=== PATIENT | female | born 1995 | race Caucasian/White ===

== ENCOUNTER 2018-08-28 11:08 | Emergency (ER) | payer OTHER ==
--- NOTE | 2018-08-28 12:20 | EDM.PDOC ---
<Amol Crawford - Last Filed: 08/28/18 12:14> ED HPI GENERAL MEDICAL PROBLEM - General Chief Complaint: Neck Problem Stated Complaint: NECK PAIN Time Seen by Provider: 08/28/18 11:28 Source of Information: Reports: Patient History Limitations: Reports: No Limitations - History of Present Illness INITIAL COMMENTS - FREE TEXT/NARRATIVE: Katiuska Rajput is a 22 year old female who presents to the ED with neck pain since 08/21. She was at a drive through and when she turned to looked at the employee she felt a sudden sharp pain. She states that pain hasn't worsened or improved. She feels the pain with any head motions but states that her range of motion is only limited due to pain and there is no joint stiffness. She applies heat and states that helps and it makes the neck a little numb. Her pain is a sharp 8 out of 10 that starts at about C7 and radiates to the back of the skull and towards the right shoulder. She has tried taking Ibuprofen, Aleve, and Aspirin for her pain but nothing seems to be working. She has recently taken Ibuprofen at 10 this morning. She has never had this type of pain. She denies any surgeries to her spine. Right Neck Pain Score (Numeric/FACES): 5 - Related Data Allergies Allergy/AdvReac Type Severity Reaction Status Date / Time Penicillins Allergy Rash Verified 08/28/18 11:16 Home Meds: Home Meds Orphenadrine [Norflex] 100 mg PO BID PRN #20 tab 08/28/18 [Rx] predniSONE [Deltasone] 20 mg PO ASDIRECTED #15 tablet 08/28/18 [Rx] Past Medical History - Past Health History Medical/Surgical History: Denies Medical/Surgical History Cardiovascular History: Reports: Hypertension Social & Family History - Family History Family Medical History: Noncontributory - Tobacco Use Smoking Status *Q: Never Smoker - Caffeine Use Caffeine Use: Reports: Coffee - Recreational Drug Use Recreational Drug Use: No ED ROS GENERAL - Review of Systems Constitutional: Reports: No Symptoms Respiratory: Reports: No Symptoms Cardiovascular: Reports: No Symptoms GI/Abdominal: Reports: No Symptoms Musculoskeletal: Reports: Neck Pain, Muscle Pain. Denies: Shoulder Pain, Joint Pain, Joint Swelling Neurological: Reports: No Symptoms ED EXAM, UPPER BACK/NECK PAIN - Physical Exam Exam Limited By: No Limitations General Appearance: Alert, WD/WN, No Apparent Distress Eye Exam: Bilateral Eye: Normal Inspection, PERRL Head Exam: Atraumatic, Normocephalic Neck Exam: Full Range of Motion, Normal Alignment, Limited Range of Motion (Due to pain), Painful Range of Motion, Paraspinous Muscle Tender, Stiff Neck, Tenderness (To C7, mid skull, and shelter to right shoulder). No: Muscle Spasm , Spinous Processes Tender Cardiovascular/Respiratory: Regular Rate, Rhythm, No M/R/G, Normal Peripheral Pulses, No JVD, Normal Breath Sounds, No Respiratory Distress Back Exam: Normal Inspection, Full Range of Motion, NT Extremities: Normal Inspection, Normal Range of Motion, Non-Tender, No Pedal Edema, Normal Capillary Refill Neurologic: frame nailer II-XII nml As Tested, No Motor/Sensory Deficits, Alert, Normal Mood/Affect, Oriented x 3 Psychiatric: Normal Affect, Normal Mood Course - Vital Signs Last Recorded V/S: Last Vital Signs Temp 97.7 F 08/28/18 11:13 Pulse 84 08/28/18 11:13 Resp 18 08/28/18 11:13 BP 151/108 H 08/28/18 11:13 Pulse Ox 100 08/28/18 11:13 Departure - Departure Disposition: Home, Self-Care 01 Clinical Impression: Acute strain of neck muscle Qualifiers: Encounter type: initial encounter Qualified Code(s): S16.1XXA - Strain of muscle, fascia and tendon at neck level, initial encounter - Discharge Information Prescriptions: Orphenadrine [Norflex] 100 mg PO BID PRN #20 tab PRN Reason: Spasms predniSONE [Deltasone] 20 mg PO ASDIRECTED #15 tablet Instructions: Muscle Strain, [id number] Referrals: PCP,None [Primary Care Provider] - Forms: ED Department Discharge Additional Instructions: You have been evaluated in the ED for your neck pain. Please use ice/heat as tolerated to the affected area. You may take tylenol 500 mg or ibuprofen 600mg q6 hrs for pain relief. Please do so until you have a tolerable level of pain with activity. Do not exceed 4000mg tylenol, Do not exceed 3200mg ibuprofen in a 24 hour time period. You have been provided with a prescription for Norflex, please take one tab twice daily for muscle spasms, You have also been provided with a script for prednisone, an anti-inflammatory, please take as directed. You may also obtain Salonpas topical pain relief patches, these are over-the- counter and can be obtained at any retail pharmacy or [facility]. Please return to ED if your symptoms should change or worsen. <Dorinda Douglas Marie - Last Filed: 08/28/18 21:23> ED HPI GENERAL MEDICAL PROBLEM - History of Present Illness INITIAL COMMENTS - FREE TEXT/NARRATIVE: I have read and reviewed the student's HPI and examined the patient and agree with Ata Carmichael student. ED ROS GENERAL - Review of Systems Review Of Systems: See Below ED EXAM, UPPER BACK/NECK PAIN - Physical Exam Exam: See Below Course - Re-Assessments/Exams Free Text/Narrative Re-Assessment/Exam: 08/28/18 12:25 Patient presents to the ED for the evaluation of neck pain. This is most likely musculoskeletal strain in nature. I will provide the patient with prescription for Norflex, and a steroid burst to see if this doesn't help further pain relief. The patient is amenable to this plan. Departure - Departure Time of Disposition: 12:27 Condition: Fair - Discharge Information *PRESCRIPTION DRUG MONITORING PROGRAM REVIEWED*: No *COPY OF PRESCRIPTION DRUG MONITORING REPORT IN PATIENT DOUGLAS: No
== END 2018-08-28 12:44 | disposition home or self-care (01) ==
LOC: JD.ED 11:08
DX: S16.1XXA Strain of muscle, fascia and tendon at neck level, initial encounter (principal); I10 Essential (primary) hypertension; Z88.0 Allergy status to penicillin; X50.0XXA Overexertion from strenuous movement or load, initial encounter
CPT/HCPCS: 99283

== ENCOUNTER 2018-08-30 22:19 | Emergency (ER) | payer SELFPAY ==
--- NOTE | 2018-08-30 22:58 | EDM.PDOC ---
ED HPI GENERAL MEDICAL PROBLEM - General Chief Complaint: Back Pain or Injury Stated Complaint: NECK PAIN FROM FRONT OF NECK TO LOWER BACK Time Seen by Provider: 08/30/18 22:33 Source of Information: Reports: Patient, RN Notes Reviewed History Limitations: Reports: No Limitations - History of Present Illness INITIAL COMMENTS - FREE TEXT/NARRATIVE: Patient is a 22 year old female who presents to the ED for the evaluation of upper back and anterior neck pain. She states that this is located mainly in her middle upper back, and over her sternum and anterior neck. She notes the pain to be more of a tenderness to the touch. She states that started roughly 2 hours ago. She notes that is hurts to lay on her back. She states that she just took her prednisone and norflex, and states that has helped her neck strain immensely. She further denies any trauma to the area, and denies pain with breathing. She states that the pain is mostly present when the areas are touched. She rates this at an 8/10. Back Pain Score (Numeric/FACES): 8 - Related Data Allergies Allergy/AdvReac Type Severity Reaction Status Date / Time Penicillins Allergy Rash Verified 08/28/18 11:16 Home Meds: Home Meds Orphenadrine [Norflex] 100 mg PO BID PRN #20 tab 08/28/18 [Rx] predniSONE [Deltasone] 20 mg PO ASDIRECTED #15 tablet 08/28/18 [Rx] Past Medical History - Past Health History Medical/Surgical History: Denies Medical/Surgical History Cardiovascular History: Reports: Hypertension Social & Family History - Family History Family Medical History: Noncontributory - Tobacco Use Smoking Status *Q: Never Smoker - Caffeine Use Caffeine Use: Reports: Coffee, Energy Drinks, Soda - Recreational Drug Use Recreational Drug Use: No ED ROS GENERAL - Review of Systems Review Of Systems: See Below Constitutional: Reports: No Symptoms HEENT: Reports: No Symptoms Respiratory: Denies: Shortness of Breath Cardiovascular: Denies: Chest Pain Musculoskeletal: Reports: Neck Pain, Back Pain Skin: Reports: No Symptoms Neurological: Denies: Headache, Numbness, Tingling Psychiatric: Reports: No Symptoms Hematologic/Lymphatic: Reports: No Symptoms Immunologic: Reports: No Symptoms ED EXAM, UPPER BACK/NECK PAIN - Physical Exam Exam: See Below Exam Limited By: No Limitations General Appearance: Alert, WD/WN, No Apparent Distress Eye Exam: Bilateral Eye: Normal Inspection Neck Exam: Full Range of Motion, Normal Alignment, Normal Inspection, Other ( anterior neck slightly tender to even light touch. She is able to move her neck in normal ROM without pain.) Nexus Criteria: No: Posterior, Midline Cervical Tenderness, Evidence of Intoxication, Altered Level of Consciousness, Focal Neurological Deficit, Painful Distraction Injuries Cardiovascular/Respiratory: Regular Rate, Rhythm, Normal Peripheral Pulses, Normal Breath Sounds, No Respiratory Distress Extremities: Normal Inspection, Normal Range of Motion, Normal Capillary Refill Neurologic: No Motor/Sensory Deficits, Alert, Normal Mood/Affect, Oriented x 3 Psychiatric: Normal Affect, Normal Mood Skin Exam: Normal Color, Warm/Dry Course - Vital Signs Last Recorded V/S: Last Vital Signs Temp 97.9 F 08/30/18 22:32 Pulse 98 08/30/18 22:32 Resp 20 08/30/18 22:32 BP 123/103 H 08/30/18 22:32 Pulse Ox 100 08/30/18 22:32 - Re-Assessments/Exams Free Text/Narrative Re-Assessment/Exam: 08/30/18 22:59 Pt presents to the ED for the evaluation of sudden onset middle upper back and neck tenderness. This may be a sequelae from her neck strain, as there are no other obvious signs of trauma or impairment. I will offer the patient toradol for pain relief, and the option to be sent home with 0.5 mg ativan to get some sleep and see if the pain is still present in the AM. 08/30/18 23:09 Pt is amenable to the conservative management plan. She did refuse the toradol and ativan at this time, and will go home and take her ibuprofen. Recommendations to heat/ice as tolerated and lidocaine patches for further relief were given. She was educated on the signs on when to return. Departure - Departure Time of Disposition: 23:12 Disposition: Home, Self-Care 01 Condition: Fair Clinical Impression: Neck pain, Acute upper back pain - Discharge Information *PRESCRIPTION DRUG MONITORING PROGRAM REVIEWED*: No *COPY OF PRESCRIPTION DRUG MONITORING REPORT IN PATIENT DOUGLAS: No Instructions: Back Pain, Adult, [id number] Referrals: PCP,None [Primary Care Provider] - Forms: ED Department Discharge Additional Instructions: You have been evaluated in the ED for your back pain and neck pain. This pain is likely due to muscular pain and healing from your recent muscle strain. Please take your prednisone and norflex as prescribed. You may take 400-600 mg ibuprofen for further pain relief. You may also use ice/heat packs as tolerated and lidocaine patches on the affected area on your back. Your muscles were tensed up for over a week, it is likely that you will be sore or feel pain from this for a few days. If you pain is not much better or worsens over the next few days, please to do not hesitate to return to ED for the re-evaluation.
== END 2018-08-30 23:25 | disposition home or self-care (01) ==
LOC: JD.ED 22:19
DX: M54.6 Pain in thoracic spine (principal); M54.2 Cervicalgia; I10 Essential (primary) hypertension; Z88.0 Allergy status to penicillin
CPT/HCPCS: 99282; 99283

== ENCOUNTER 2021-03-26 16:42 | Emergency (ER) | payer MEDICAID ==
--- NOTE | 2021-03-26 17:15 | EDM.PDOC ---
ED HPI GENERAL MEDICAL PROBLEM - General Chief Complaint: Abdominal Pain Stated Complaint: abdominal pain 3 wks post op Time Seen by Provider: 03/26/21 17:07 Source of Information: Reports: Patient History Limitations: Reports: No Limitations - History of Present Illness INITIAL COMMENTS - FREE TEXT/NARRATIVE: 25-year-old female presents to the ED with complaints of right lower quadrant abdominal pain at the lateral aspect of her Pfannenstiel scar that was done 3 weeks ago. It was not bothering her initially but has over the last 3 days with increased sharp stabbing lancinating burning shooting pain suggestive of neurogenic pain. Patient was in [place] due to spontaneous ruptured membranes and required emergency with the delivery of a 29-week old female which is in the NICU at this time. Mother is pumping but not breast-feeding. Bowel function has been normal. She is appreciated night sweats which she believes is due to hormone changes. She has very little lochia. No genitourinary complaints. She has no pain on the left side of her surgical incision but has developed increasing pain in the right side of her lateral incision over the last 3 days. It is painful to get in and out of a vehicle she cannot tolerate the lap belt on the area and has to hold it away from her skin. It hurts to get in and out of bed hurts to get up and off a sofa or chair. She has not appreciated any definitive fever. She has had no drainage from her surgical wound. She is not sure if there was a hematoma in this area prior and is more noticeable at this point time since she continues to lose weight. Onset: Gradual Onset Date: 03/23/21 Duration: Day(s):, Getting Worse (Increasing pain right lower quadrant lateral aspect of Pfannenstiel incision over the last 3 days) Location: Reports: Abdomen (Right lower quadrant of the abdomen) Quality: Reports: Ache, Throbbing, Other (Sharp and stabbing with certain movements) Severity: Moderate Improves with: Reports: Rest Worsens with: Reports: Movement (Deep breathing coughing movement such as walking getting out of a vehicle etc.) Context: Reports: Other (Pain at the right lateral aspect of her Pfannenstiel C- sections incision which was performed 3 weeks ago). Denies: Activity, Exercise, Lifting, Sick Contact Associated Symptoms: Reports: Other (Night sweats diaphoresis she feels due to hormone changes) Treatments MANAGER CUSTOMER: Reports: Acetaminophen Right Lower Abdomen Pain Score (Numeric/FACES): 8 - Related Data Allergies Allergy/AdvReac Type Severity Reaction Status Date / Time Penicillins Allergy Rash Verified 03/26/21 17:04 Home Meds: Home Meds . 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 Denies: Fever, Chills, Malaise, Weakness, Decreased Valarie etite, Weight Loss HEENT: Reports: No Symptoms Respiratory: Reports: No Symptoms Cardiovascular: Reports: No Symptoms Endocrine: Reports: Fatigue GI/Abdominal: Reports: Abdominal Pain (See history of present illness), Flatus. Denies: Constipation, Distension, Nausea, Vomiting : Reports: Other (Hardly any lochia.). Denies: Dysuria, Frequency, Urgency Musculoskeletal: Reports: No Symptoms Skin: Reports: No Symptoms Neurological: Reports: No Symptoms Psychiatric: Reports: No Symptoms Hematologic/Lymphatic: Reports: No Symptoms Immunologic: Reports: No Symptoms ED EXAM, GI/ABD - Physical Exam Exam: See Below Exam Limited By: No Limitations General Appearance: Alert, WD/WN, No Apparent Distress, Other (Temperature is 37.2 degrees although she does not feel warm to palpation. Heart rate is 86 and sinus respiratory to 16 with O2 sats of 96% on room air BP 149/108.) Eyes: Bilateral: Normal Appearance (Mild blepharal pallor. No scleral icterus) Throat/Mouth: Normal Inspection, Normal Lips, Normal Oropharynx Respiratory/Chest: No Respiratory Distress, Lungs Clear, Normal Breath Sounds, No Accessory Muscle Use Cardiovascular: Normal Peripheral Pulses, Regular Rate, Rhythm, No Edema, No Gallop, No Murmur, No Rub GI/Abdominal Exam: Normal Bowel Sounds, Soft, No Organomegaly, No Mass, Pelvis Stable, Other (She is tender with a palpable mass just underneath the lateral aspect of her Pfannenstiel surgical wound right lower quadrant. This area is tender to touch as well. It feels like a resolving hematoma there is no fluctuation the surgical wound appears to be healing adequately with no signs of drain) Back Exam: Normal Inspection, Full Range of Motion. No: CVA Tenderness (L), CVA Tenderness (R) Extremities: Normal Inspection, Normal Range of Motion, Non-Tender, No Pedal Edema Neurological: Alert, Oriented, CN II-XII Intact, Normal Cognition. No: Normal Gait Psychiatric: Normal Affect, Normal Mood Skin Exam: Warm, Dry, Intact, Normal Color, No Rash Course - Vital Signs Last Recorded V/S: Last Vital Signs Temp 37.2 C 03/26/21 16:56 Pulse 86 03/26/21 16:56 Resp 16 03/26/21 16:56 BP 149/108 H 03/26/21 16:56 Pulse Ox 96 03/26/21 16:56 - Orders/Labs/Meds Orders: Active Orders 24 hr Category Date Time Status Abdomen Pelvis wo Cont [CT] Stat Exams 03/26/21 17:16 Taken Labs: Laboratory Tests 03/26/21 03/26/21 03/26/21 Range/Units 17:26 17:26 17:44 WBC 6.98 (3.98-10.04) K/mm3 RBC 4.69 (3.98-5.22) M/mm3 Hgb 14.4 (11.2-15.7) gm/dl Hct 42.1 (34.1-44.9) % MCV 89.8 (79.4-94.8) fl MCH 30.7 (25.6-32.2) pg MCHC 34.2 (32.2-35.5) g/dl RDW Std Deviation 37.7 (36.4-46.3) fL Plt Count 281 (182-369) K/mm3 MPV 9.3 L (9.4-12.3) fl Neut % (Auto) 49.2 (34.0-71.1) % Lymph % (Auto) 41.3 (19.3-51.7) % Stevens % (Auto) 6.4 (4.7-12.5) % Eos % (Auto) 2.4 (0.7-5.8) Baso % (Auto) 0.3 (0.1-1.2) % Neut # (Auto) 3.43 (1.56-6.13) K/mm3 Lymph # (Auto) 2.88 (1.18-3.74) K/mm3 Stevens # (Auto) 0.45 H (0.24-0.36) K/mm3 Eos # (Auto) 0.17 (0.04-0.36) K/mm3 Baso # (Auto) 0.02 (0.01-0.08) K/mm3 Sodium 138 (136-145) mEq/L Potassium 3.8 (3.5-5.1) mEq/L Chloride 103 (98-107) mEq/L Carbon Dioxide 27 (21-32) mEq/L Anion Gap 11.8 (5-15) BUN 12 (7-18) mg/dL Creatinine 1.0 (0.55-1.02) mg/dL Est Cr Clr Drug Dosing 76.71 mL/min Estimated GFR (MDRD) > 60 (>60) mL/min BUN/Creatinine Ratio 12.0 L (14-18) Glucose 91 (70-99) mg/dL Calcium 9.1 (8.5-10.1) mg/dL Total Bilirubin 0.4 (0.2-1.0) mg/dL AST 12 L (15-37) U/L ALT 25 (14-59) U/L Alkaline Phosphatase 104 (46-116) U/L C-Reactive Protein <0.2 (<1.0) mg/dL Total Protein 7.6 (6.4-8.2) g/dl Albumin 3.8 (3.4-5.0) g/dl Globulin 3.8 gm/dL Albumin/Globulin Ratio 1.0 (1-2) Urine Color Yellow (Yellow) Urine Appearance Clear (Clear) Urine pH 6.0 (5.0-8.0) Ur Specific [place] 1.025 (1.005-1.030) Urine Protein Negative (Negative) Urine Glucose (UA) Negative (Negative) Urine Ketones Negative (Negative) Urine Occult Blood Negative (Negative) Urine Nitrite Negative (Negative) Urine Bilirubin Negative (Negative) Urine Urobilinogen 0.2 (0.2-1.0) Ur Leukocyte Esterase Trace H (Negative) Urine RBC 0-5 (0-5) /hpf Urine WBC 0-5 (0-5) /hpf Ur Squamous Epith Cells 0-5 (0-5) /hpf Urine Bacteria Few (FEW) /hpf Urine Mucus Few (FEW) /hpf - Radiology Interpretation Free Text/Narrative:: 25-year-old female presents to the ED for evaluation of increasing pain right lateral aspect of her Pfannenstiel wound that was performed 3 weeks ago. She will delivered a 29-week female fetus whom remains in the NICU in [place] by emergency due to prolonged rupture of membranes. Patient has a bicornuate uterus and always delivers early. She is 3 para 3. She does not believe she has been running a fever but she is having increasing p ain to touch to stand to walk for cough and lap belt of the seatbelt hurts going across this area. It hurts to get in and out of bed it hurts to get up and down from a sofa or chair. On exam she has a tender firm indurated area lateral aspect of the Pfannenstiel wound which appears to be a hematoma. There is no fluctuation to suggest a seroma. Plan : CBC, CMP, CRP and urinalysis. CT of the abdomen and pelvis per renal protocol without any contrast. - Re-Assessments/Exams Free Text/Narrative Re-Assessment/Exam: 03/26/21 17:50 Urinalysis is yellow clear with a trace of leukocyte Estrace but the micro shows no white cells or red cells 03/26/21 17:57 White count is normal at 6.98. The auto differential reveals 49.2% neutrophils. Hemoglobin is 14.4 with hematocrit of 42.1 platelet count 281,000 .Chemistry is pending 03/26/21 18:08 CT scan of the abdomen pelvis has been performed without any contrast. It reveals a small hiatal hernia. Basal lungs are clear. Liver appears homogeneous without any intraductal dilatation. Gallbladder contains no calcified stones. Pancreas appears normal. Spleen appears normal stomach is for the most part empty. Both kidneys appear normal without any stones and ureters are normal. There is a fair amount of stool throughout the entire colon most notable splenic flexure and descending colon. No signs of bowel obstruction. Inspection of the soft tissues particularly adjacent to the right side of the Pfannenstiel incision on the abdominal wall shows areas of thickening combined with resident resolving hematoma in this area. No abscesses are identified. 03/26/21 18:32 Chemistry reveals a sodium of 138 and potassium of 3.8. Chloride is 103 with a bicarb of 27. Anion gap is 11.8 with a BUN of 12 and a creatinine of 1.0 GFR is greater than 60. Glucose is 91 with a calcium of 9.1 liver function is normal C-reactive protein is less than 0.2 total protein 7.6 with an albumin fraction of 3.8. Over read of the CT scan of the abdomen pelvis performed without IV contrast by [facility]RAD reveals a normal-appearing liver with no masses. Gallbladder and bile ducts reveal no calcified stones or ductal dilatation. Pancreas was normal spleen was normal adrenal glands were normal kidneys and ureters were felt to be normal stomach and bowel unremarkable with no obstruction no mucosal thickening. Appendix no evidence of appendicitis trace fluid in the cul-de-sac. Vasculature unremarkable lymph nodes unremarkable urinary bladder unremarkable reproductive scar appreciated. Recent postsurgical changes seen related to the the uterus appears bulky. Lack of contrast limits exam for abscess but no obvious abscess abscess identified. Patient will be discharged home to use hot compresses to the abdominal wall and Motrin as needed for pain. If pain persists past 3 weeks a trial of low-dose gabapentin would be in order since the pain appears to be neurogenic in origin sharp stabbing lancinating and burning. Departure - Departure Time of Disposition: 18:40 Disposition: Home, Self-Care 01 Condition: Fair Clinical Impression: Abdominal wall pain in right lower quadrant, Hematoma of surgical wound following section - Discharge Information *PRESCRIPTION DRUG MONITORING PROGRAM REVIEWED*: Not Applicable *COPY OF PRESCRIPTION DRUG MONITORING REPORT IN PATIENT DOUGLAS: Not Applicable Instructions: Abdominal Pain, Adult, [id number], Hematoma Referrals: Sepideh Hernández MD [Primary Care Provider] - Forms: ED Department Discharge Additional Instructions: Evaluation in the emergency room today in regards to increasing pain right lower quadrant at the lateral aspect of your Pfannenstiel surgical wound which was performed 3 weeks ago. On examination there is an indurated which means firm area which is tender lateral aspect of the surgical wound right lower quadrant. This feels like blood clot under the skin that is slowly being reabsorbed. I suspect it was a nerve irritated by the hematoma which is coming back to life causing increased pain in this area. CT scan of the abdomen reveals a hematoma correlating to your area of pain which is quite small and appears to be slowly reabsorbing. There was no sign of any abscess or pus collection in the surgical wound. Lab test also revealed no evidence of an infection and hemoglobin is normal. Treatment is warm compresses, for 1/2 hr out of ever4 hrs to the area to help the blood clot breakdown faster. Motrin 600 mg every 6-8 hours as needed for relief of pain and inflammation. The pain sounds neurogenic in origin as if a nerve that was compressed by blood clot is now coming back to life causing the sharp stabbing and burning pain. I suspect this pain will last about another 3 weeks before it goes away completely. If is not better in 3 weeks , one could consider the use of a medication called gabapentin 300 mg at bedtime to relieve this type of pain. The CT scan also did identify constipation with increased stool throughout most of your colon which is not uncommon after a surgical procedure plus pumping breasts which is also causing some dehydration. Suggest purchasing MiraLAX powder which is [id number] and taking 1 scoop of powder once daily for the next 3 weeks which will help the bowels work normally. Increasing fluid intake will also help similarly eating increased fruits grains and vegetables particularly whole wheat grain will act as a fiber. - My Orders Last 24 Hours: My Active Orders 03/26/21 17:16 Abdomen Pelvis wo Cont [CT] Stat - Assessment/Plan Last 24 Hours: My Active Orders 03/26/21 17:16 Abdomen Pelvis wo Cont [CT] Stat
--- NOTE | 2021-03-28 06:45 | CT ---
CT abdomen and pelvis Technique: Multiple axial sections were obtained from above the dome of the diaphragm inferiorly through the pubic symphysis. Intravenous and oral contrast not utilized. Reconstructed coronal and sagittal images were obtained. Findings: Visualized lung bases show nothing acute. Noncontrast appearance of the liver and spleen appear within normal limits. Adrenal glands show no nodule. Pancreas shows no abnormality. Kidneys show no abnormal calcifications or soft tissue abnormality. Abdominal aorta shows no aneurysm. No retroperitoneal adenopathy is seen. No pelvic mass or adenopathy is seen. No free fluid or inflammatory change is seen. Appendix is seen which is normal. Slight increased density within the lower anterior pelvis is seen compatible with previous surgery. Uterus is slightly prominent in size compatible with recent . Bone window settings were reviewed. No acute osseous abnormality is appreciated. Impression: 1. Nothing acute is seen on noncontrast CT study of the abdomen and pelvis. 2. Minimal change relating to previous section. Diagnostic code #2 I agree with preliminary report from [facility], finalized on 03/26/21, 8:08 PM CDT, code 1
== END 2021-03-26 19:01 | disposition home or self-care (01) ==
LOC: JD.ED 16:42
DX: O90.2 Hematoma of obstetric wound (principal); Z88.0 Allergy status to penicillin; Z37.0 Single live birth
CPT/HCPCS: 36415; 74176; 74176-26; 80053; 81001; 85025; 86140; 99284; 99284-25